=== PATIENT | female | born 1965 | race Caucasian/White ===

== ENCOUNTER → 2022-05-27 13:07 | Outpatient (CLI) | payer OTHER, SELFPAY ==
--- NOTE | 2022-05-27 13:10 | DI.MG.S_ITS ---
BILATERAL DIGITAL SCREENING MAMMOGRAM 3D/2D WITH CAD: 05/27/2022 CLINICAL: Routine screening. Comparison is made to exams dated: 01/09/2021 mammogram, 11/23/2018 mammogram, and 09/05/2017 mammogram - outside facility. Both breasts are heterogeneously dense, which may obscure small masses (category c / 51-75% glandular tissue). Current study was also evaluated with a Computer Aided Detection (CAD) system. No significant masses, calcifications, or other findings are seen in either breast. There has been no significant interval change. IMPRESSION: NEGATIVE There is no mammographic evidence of malignancy. A 1 year screening mammogram is recommended. This exam was interpreted at Station ID: [id number]. NOTE: For mammograms, a report in lay terms will be sent to the patient. Approximately 15% of breast malignancies will not be visualized mammographically. In the management of a palpable breast mass, a negative mammogram must not discourage biopsy of a clinically suspicious lesion. Electronically Signed By: Ha larios/emy:05/27/2022 16:39:43 letter sent: Normal Exam ACR BI-RADS Category 1: Negative 3341F
== END ==
PROVIDERS: PCP Family Medicine; Referring Provider Family Medicine; Visit Provider Family Medicine
DX: Z12.31 Encounter for screening mammogram for malignant neoplasm of breast (principal)
CPT/HCPCS: 77063; 77067

== ENCOUNTER → 2023-05-30 10:57 | Outpatient (CLI) | payer OTHER, SELFPAY ==
--- NOTE | 2023-05-30 10:59 | DI.MG.S_ITS ---
BILATERAL DIGITAL SCREENING MAMMOGRAM 3D/2D WITH CAD: 05/30/2023 CLINICAL: Routine screening. Comparison is made to exams dated: 05/27/2022 mammogram - , 01/09/2021 mammogram, and 11/23/2018 mammogram - outside facility. Both breasts are heterogeneously dense, which may obscure small masses (category c / 51-75% glandular tissue). Current study was also evaluated with a Computer Aided Detection (CAD) system. No significant masses, calcifications, or other findings are seen in either breast. There has been no significant interval change. IMPRESSION: NEGATIVE There is no mammographic evidence of malignancy. A 1 year screening mammogram is recommended. Based on the Tyrer Cuzick model (a risk assessment model) the patient's lifetime risk is 15.1% and her 10 year risk is 5.0%. According to the ACR, ACS, and NCCN guidelines, an annual breast MRI exam along with mammogram is recommended if the patient's lifetime risk is 20% or greater. This exam was interpreted at Station ID: [id number]. NOTE: For mammograms, a report in lay terms will be sent to the patient. Approximately 15% of breast malignancies will not be visualized mammographically. In the management of a palpable breast mass, a negative mammogram must not discourage biopsy of a clinically suspicious lesion. Electronically Signed By: Yumiko moy/emy:05/30/2023 14:27:51 letter sent: Normal Exam ACR BI-RADS Category 1: Negative [id number]
== END ==
PROVIDERS: PCP Family Medicine; Referring Provider Family Medicine; Visit Provider Family Medicine
DX: Z12.31 Encounter for screening mammogram for malignant neoplasm of breast (principal)
CPT/HCPCS: 77063; 77067

== ENCOUNTER → 2023-11-25 11:39 | Outpatient (CLI) | payer OTHER, SELFPAY ==
[2023-11-25 13:42] LABS: Cholesterol 295 mg/dL (140-199); Glucose 90 mg/dL (70-100); HDL Cholesterol 69 mg/dL (40-60); LDL Cholesterol Calculated 203 mg/dL (<100); Triglycerides 116 mg/dL (35-150)
== END ==
PROVIDERS: PCP Family Medicine; Referring Provider Family Medicine; Visit Provider Family Medicine
DX: Z13.9 Encounter for screening, unspecified (principal)
CPT/HCPCS: 36415; 80061; 82947

== ENCOUNTER → 2023-12-27 12:54 | Outpatient (CLI) | payer OTHER, SELFPAY ==
--- NOTE | 2023-12-30 14:57 | DIET.OUTPTC ---
Dietary Outpatient Consultation Note Consultation Date: 12/30/2023 Assessment: 57 y F referred to dietitian for Hyperlipdemia. Jasmina reports wanting to review diet and other nutritional factors to help lower cholesterol w/ dietary changes before going on medication. She keeps diet recall through cronometer and track activity. Is also wanting to ensure she is getting enough protein daily. Has strong understanding of nutrition related information. Diet recall: B-11-noon post exercise: 1 serving oatmeal w/ water, 1/2 c blueberries, 1/2 c homemade granola, 2 tbsp comoran yogurt or cottage cheese, 1 tbsp nut butter, 1 sl toast, coffee w/ collagen w/ oat milk D- 4-6 oz poultry/fish/shrimp, whole grains carb, salad + vegetables cooks w/ olive oil, no red meats Per cronometer wk avg: ~54% kcals carbs, ~32% fat, ~14% protein, 60-70% of estimated fiber needs Fiber: 20-27 g per diet recall drinks electrolytes drinks prn and water Physical Activity: 7 d/wk- running 3x/wk 1 hr- 1 hr 15 min, lifting 4 x/wk rotating muscle groups, spins, on rest day walks 3 mi training for half marathon Ht: 5 ft 7 in Wt: 160 lb BMI: 25 UBW: 154 lb Nutrition Diagnosis: Inadequate protein intake r/t increased needs for activity level aeb 14% of caloric intake per diet recall Interventions: 1. Adequate fiber/protein/caloric intake -Pt w/ strong understanding of fiber and protein sources, reviewed, educ on different types of fiber, discussed additional snack to met goals, addressed fiber supplements -Additional snack (2 sl whole wheat toast + 1/4-1/2 c hummus, avocado, or nut butter, comoran yogurt+ granola, fruit etc) 2. Continue low saturated fat dietary patterns -Reviewed types of fats 3. Provided educ on plant stanols/sterols 2. [facility] f/u lipid panel to monitor need for medication if unable to reduce through diet/exercise EER: protein 90-110 g (kg x 1.2-1.4) 4904-1917 kcals (MSJ x 1.5-1.7) fiber: 25-28 g Monitoring/Evaluations: labs, diet recall Electronically Signed by: Merry Bell 12/30/23 14:57 Clinical Dietitian [address] [address]
== END ==
PROVIDERS: PCP Family Medicine; Referring Provider Family Medicine
DX: E78.5 Hyperlipidemia, unspecified (principal); Z68.25 Body mass index [BMI] 25.0-25.9, adult; Z71.3 Dietary counseling and surveillance
CPT/HCPCS: 97802

== ENCOUNTER → 2024-03-26 09:49 | Outpatient (CLI) | payer OTHER, SELFPAY ==
[2024-03-26 13:11] LABS: Cholesterol 298 mg/dL (140-199); HDL Cholesterol 83 mg/dL (40-60); LDL Cholesterol Calculated 195 mg/dL (<100); Triglycerides 100 mg/dL (35-150)
== END ==
LOC: LAB 09:51
PROVIDERS: PCP Family Medicine; Referring Provider Family Medicine; Visit Provider Family Medicine
DX: E78.5 Hyperlipidemia, unspecified (principal)
CPT/HCPCS: 36415; 80061

== ENCOUNTER → 2024-05-31 09:10 | Outpatient (CLI) | payer OTHER, SELFPAY ==
--- NOTE | 2024-05-31 09:11 | DI.MG.S_ITS ---
BILATERAL DIGITAL SCREENING MAMMOGRAM 3D/2D WITH CAD: 05/31/2024 CLINICAL: Routine screening. Comparison is made to exams dated: 05/30/2023 mammogram, 05/27/2022 mammogram - [facility], and 01/09/2021 mammogram - outside facility. The breasts are heterogeneously dense, which may obscure small masses (category c / 51-75% glandular tissue). Current study was also evaluated with a Computer Aided Detection (CAD) system. No significant masses, calcifications, or other findings are seen in either breast. There has been no significant interval change. IMPRESSION: NEGATIVE There is no mammographic evidence of malignancy. A 1 year screening mammogram is recommended. Based on the Tyrer Cuzick model (a risk assessment model) the patient's lifetime risk is 14.9% and her 10 year risk is 5.3%. According to the ACR, ACS, and NCCN guidelines, an annual breast MRI exam along with mammogram is recommended if the patient's lifetime risk is 20% or greater. This exam was interpreted at Station ID: [id number]. NOTE: For mammograms, a report in lay terms will be sent to the patient. Approximately 15% of breast malignancies will not be visualized mammographically. In the management of a palpable breast mass, a negative mammogram must not discourage biopsy of a clinically suspicious lesion. Electronically Signed By: Dilip henao/emy:06/01/2024 15:42:38 letter sent: Normal Exam ACR BI-RADS Category 1: Negative
== END ==
LOC: MAMMO 09:11
PROVIDERS: PCP Family Medicine; Referring Provider Family Medicine; Visit Provider Family Medicine
DX: Z12.31 Encounter for screening mammogram for malignant neoplasm of breast (principal); R92.333 Mammographic heterogeneous density, bilateral breasts
CPT/HCPCS: 77063; 77067

== ENCOUNTER → 2024-10-19 07:24 | Outpatient (CLI) | payer OTHER, SELFPAY ==
[2024-10-19 08:38] LABS: Alanine Aminotransferase 40 IU/L (<35); Albumin 4.7 g/dL (3.5-5.0); Alkaline Phosphatase 59 U/L (38-126); Aspartate Aminotransferase 44 IU/L (14-36); BUN Creatinine Ratio 16.8 (6-22); Bilirubin Total 0.7 mg/dL (0.2-1.3); Blood Urea Nitrogen 17 mg/dL (7-17); Calcium 9.6 mg/dL (8.4-10.2); Carbon Dioxide 27 mmol/L (22-32); Chloride 100 mmol/L (98-107); Cholesterol 206 mg/dL (140-199); Estimated Glomerular Filt Rate > 60 mL/min (>60); Globulin 2.3 g/dL (1.7-4.1); Glucose 100 mg/dL (70-99); HDL Cholesterol 85 mg/dL (40-60); HEMOLYSIS < 15 (0-50); LDL Cholesterol Calculated 102 mg/dL (<100); Potassium 4.3 mmol/L (3.4-5.1); Sodium 135 mmol/L (137-145); Triglycerides 97 mg/dL (35-150)
== END ==
PROVIDERS: PCP Family Medicine; Referring Provider Family Medicine; Visit Provider Family Medicine
DX: Z13.9 Encounter for screening, unspecified (principal)
CPT/HCPCS: 36415; 80053; 80061

== ENCOUNTER → 2024-11-30 08:31 | Outpatient (CLI) | payer OTHER, SELFPAY ==
[2024-11-30 23:36] LABS: HBsAg Screen Negative (Negative); Hepatitis A Antibody IgM Negative (Negative); Hepatitis B Core Antibody IgM Negative (Negative); Hepatitis C Antibody Non Reactive (Non Reactive)
== END ==
PROVIDERS: PCP Family Medicine; Referring Provider Family Medicine; Visit Provider Family Medicine
DX: R74.8 Abnormal levels of other serum enzymes (principal)
CPT/HCPCS: 36415; 80074

== ENCOUNTER → 2024-12-12 08:09 | Outpatient (CLI) | payer OTHER, SELFPAY ==
[2024-12-12 08:54] LABS: Alanine Aminotransferase 49 IU/L (<35); Albumin 4.5 g/dL (3.5-5.0); Albumin Globulin Ratio 2.0 (1.0-2.8); Alkaline Phosphatase 56 U/L (38-126); Blood Urea Nitrogen 12 mg/dL (7-17); Calcium 9.6 mg/dL (8.4-10.2); Carbon Dioxide 22 mmol/L (22-32); Chloride 104 mmol/L (98-107); Estimated Glomerular Filt Rate > 60 mL/min (>60); Globulin 2.3 g/dL (1.7-4.1); Glucose 110 mg/dL (70-99); HEMOLYSIS < 15 (0-50); Potassium 4.3 mmol/L (3.4-5.1); Sodium 136 mmol/L (137-145); Total Protein 6.8 g/dL (6.3-8.2)
== END ==
PROVIDERS: PCP Family Medicine; Referring Provider Family Medicine; Visit Provider Family Medicine
DX: R74.8 Abnormal levels of other serum enzymes (principal)
CPT/HCPCS: 36415; 80053

== ENCOUNTER → 2024-12-27 08:00 | Outpatient (CLI) | payer OTHER, SELFPAY ==
--- NOTE | 2024-12-27 08:01 | DI.US.S_ITS ---
PROCEDURE: US ABDOMEN LIMITED INDICATIONS: ELEVATED LIVER ENZYMES TECHNIQUE: Real-time scanning was performed of the abdominal and retroperitoneal organs, with image documentation. COMPARISON: None. FINDINGS: Liver: Liver is normal in size and homogeneous in echotexture. Normal hepatopetal flow is seen in patent main portal vein. Gallbladder: No gallstones. No gallbladder wall thickening or pericholecystic fluid. No sonographic Guzman's sign. Biliary ducts: Intrahepatic bile ducts are non-dilated. Extrahepatic bile duct caliber measures 3.7 mm. Normal is 6-7 mm or less in diameter, or 10 mm or less post-cholecystectomy. Pancreas: Visualized portions of the pancreas are sonographically normal. Miscellaneous: No free abdominal fluid. IMPRESSION: Unremarkable ultrasound examination of right upper quadrant abdomen. Dictated by: Jareth Walker M.D. on 12/27/2024 at 12:18 Approved by: Jareth Walker M.D. on 12/27/2024 at 12:18
== END ==
PROVIDERS: PCP Family Medicine; Referring Provider Family Medicine; Visit Provider Family Medicine
DX: R74.8 Abnormal levels of other serum enzymes (principal)
CPT/HCPCS: 76705

== ENCOUNTER → 2025-01-04 07:41 | Outpatient (CLI) | payer OTHER, SELFPAY ==
[2025-01-04 07:59] LABS: Add Manual Diff / Slide Review NO; Hematocrit 39.7 % (36-46); Hemoglobin 13.5 g/dL (12.0-16.0); Lymphocytes Absolute Auto 2700 /uL (1100-4500); Mean Corpuscular HGB Conc 34.0 % (30-36); Mean Corpuscular Hemoglobin 31.2 PG (26-34); Mean Corpuscular Volume 91.6 fL (80-100); Platelet Count 204 X10^3/uL (150-400)
[2025-01-04 08:23] LABS: Iron 75 ug/dL (37-170)
[2025-01-04 08:40] LABS: Free T3, Triiodothyronine Free 3.45 pg/mL (2.77-5.27)
[2025-01-04 08:55] LABS: TSH w/ Reflex to FT4 1.12 uIU/mL (0.47-4.68)
== END ==
PROVIDERS: PCP Family Medicine; Referring Provider Family Medicine; Visit Provider Family Medicine
DX: R74.8 Abnormal levels of other serum enzymes (principal)
CPT/HCPCS: 36415; 83540; 84443; 84481; 85025

== ENCOUNTER → 2025-06-12 07:56 | Outpatient (CLI) | payer OTHER, SELFPAY ==
--- NOTE | 2025-06-12 07:57 | DI.MG.S_ITS ---
MM screening mammo BI: 06/12/2025. BI-RADS: 1 CLINICAL: 59-year old female for bilateral screening mammogram. Tyrer-Cuzick lifetime risk of 9.7%. No personal or first-degree family history of breast cancer. PRIOR EXAMS 05/31/2024, 05/30/2023, 05/27/2022. MAMMOGRAPHY TECHNIQUE: 2D and 3D (tomosynthesis) digital mammographic views obtained, with additional images as needed for full coverage. Current study was also evaluated with a Computer Aided Detection (CAD) system. DENSITY C. The breasts are heterogeneously dense, which may obscure small masses. MAMMOGRAPHY FINDINGS Bilateral: No suspicious mass, asymmetry, microcalcification, or other abnormality seen. IMPRESSION: * No evidence of malignancy. RECOMMENDATIONS Bilateral * Annual screening mammography. OVERALL ASSESSMENT CATEGORY BI-RADS-1: Negative. The [employer] recommends annual screening mammography beginning at age 40 for women with average risk of breast cancer. ELECTRONICALLY SIGNED: Mable Mejia M.D. on 06/12/2025 at 04:54:33 PM PT Interpreting Station ID: [id number]
== END ==
LOC: MAMMO 07:57
PROVIDERS: PCP Family Medicine; Referring Provider Family Medicine; Visit Provider Family Medicine
DX: Z12.31 Encounter for screening mammogram for malignant neoplasm of breast (principal); R92.333 Mammographic heterogeneous density, bilateral breasts
CPT/HCPCS: 77063; 77067